=== PATIENT | male | born 1990 | race Caucasian/White ===

== ENCOUNTER 2019-10-14 14:21 | Emergency (ER) | payer BC, OTHER ==
--- NOTE | 2019-10-14 14:47 | ER Document Report ---
ED Medical Screen (RME) - General Chief Complaint: Palpitations Stated Complaint: PALPATIONS,LEFT ARM TINGLING Time Seen by Provider: 10/14/19 14:39 Mode of Arrival: Ambulatory Information source: Patient Notes: 29-year-old male presents to ED for complaint of chest pain to the middle and pressure to the left side off and on all week. He also has numbness and tingling to his arms and hands times a week. He states the numbness and tingling is worse on the left side. He is also been lightheaded and feeling like he is drunk. He states he did not come to the emergency room until his told him he had to. He states he thought it was his anxiety medicine so he stopped his anxiety medicine 4 days ago and has not helped either. They did get him a very high blood pressure earlier in the vital signs machine area but I just did a manual blood pressure and it was much lower 172/82. Patient is alert oriented respirations regular nonlabored speaking in full sentences. He states he does have a history of high blood pressure but they are taking off his blood pressure medicine chronic back pain anxiety depression and PTSD. He states he does not smoke he drinks on weekends does not use any illicit drugs. He is alert oriented respirations regular nonlabored speaking in full sentences. I have greeted and performed a rapid initial assessment of this patient. A comprehensive ED assessment and evaluation of the patient, analysis of test results and completion of medical decision making process will be conducted by an additional ED providers. TRAVEL OUTSIDE OF THE [place] IN LAST 30 DAYS: No - Related Data Allergies/Adverse Reactions: No Known Allergies Allergy (Unverified 10/14/19 14:38) Home Medications: duloxetine Past Medical History - Social History Chew tobacco use (# tins/day): No Frequency of alcohol use: Social Drug Abuse: None Physical Exam - Vital signs Vitals: Temp Pulse Resp BP Pulse Ox 98.6 F 62 20 211/130 H 100 10/14/19 14:36 10/14/19 14:36 10/14/19 14:36 10/14/19 14:36 10/14/19 14:36 Course - Vital Signs Vital signs: Temp Pulse Resp BP Pulse Ox 98.6 F 62 20 211/130 H 100 10/14/19 14:36 10/14/19 14:36 10/14/19 14:36 10/14/19 14:36 10/14/19 14:36
[2019-10-14 15:53] LABS: ABSOLUTE BASOPHILS # (AUTO) 0.1 10^3/uL (0.0-0.2); ABSOLUTE EOSINOPHILS # (AUTO) 0.1 10^3/uL (0.0-0.6); ABSOLUTE LYMPHOCYTES (AUTO) 2.3 10^3/uL (0.5-4.7); ABSOLUTE MONOCYTES (AUTO) 0.6 10^3/uL (0.1-1.4); ABSOLUTE NEUT (AUTO) 4.3 10^3/uL (1.7-8.2); BASOPHILS % (AUTO) 0.8 % (0-2); EOSINOPHILS % (AUTO) 1.8 % (0-6); HEMATOCRIT 45.4 % (37.9-51.0); HEMOGLOBIN 15.7 g/dL (13.5-17.0); LYMPHOCYTES % (AUTO) 30.5 % (13-45); MEAN CORPUSCULAR HGB CONC 34.6 g/dL (32.0-36.0); MEAN CORPUSCULAR VOLUME 92 fl (80-97); MONOCYTES % (AUTO) 8.5 % (3-13); PLATELET COUNT 235 10^3/uL (150-450); RED BLOOD COUNT 4.91 10^6/uL (4.35-5.55); RED CELL DISTRIBUTION WIDTH 13.4 % (11.5-14.0); SEGMENTED NEUTROPHILS % (AUTO) 58.4 % (42-78); TOTAL CELLS COUNTED % (AUTO) 100 %; WHITE BLOOD COUNT 7.4 10^3/uL (4.0-10.5)
[2019-10-14 16:07] LABS: ALBUMIN 4.7 g/dL (3.5-5.0); ALKALINE PHOSPHATASE 68 U/L (38-126); ANION GAP 6 (5-19); ASPARTATE AMINO TRANSFERASE 40 U/L (17-59); BILIRUBIN,DIRECT 0.2 mg/dL (0.0-0.4); BILIRUBIN,TOTAL 0.6 mg/dL (0.2-1.3); BLOOD UREA NITROGEN 19 mg/dL (7-20); CALCIUM 9.6 mg/dL (8.4-10.2); CARBON DIOXIDE 30 mmol/L (22-30); CHLORIDE 103 mmol/L (98-107); CREATINE KINASE 457 U/L (55-170); GLUCOSE 88 mg/dL (75-110); POTASSIUM 4.5 mmol/L (3.6-5.0); TOTAL PROTEIN 7.7 g/dL (6.3-8.2)
--- NOTE | 2019-10-14 16:13 | RADIOLOGY REPORT (SQ) ---
EXAM DESCRIPTION: CHEST 2 VIEWS IMAGES COMPLETED DATE/TIME: 10/14/2019 4:02 pm REASON FOR STUDY: chest pain COMPARISON: None. TECHNIQUE: Frontal and lateral radiographic views of the chest acquired. NUMBER OF VIEWS: Two view. LIMITATIONS: None. FINDINGS: LUNGS AND PLEURA: No opacities, masses or pneumothorax. No pleural effusion. MEDIASTINUM AND HILAR STRUCTURES: No masses or contour abnormalities. HEART AND VASCULAR STRUCTURES: Heart normal size. No evidence for failure. BONES: No acute findings. HARDWARE: None in the chest. OTHER: No other significant finding. IMPRESSION: NO SIGNIFICANT RADIOGRAPHIC FINDING IN THE CHEST. TECHNICAL DOCUMENTATION: JOB ID: [id number] 2010 [employer]- All Rights Reserved Reading location - IP/workstation name: [email or web address]
[2019-10-14] MEDS ORDERED: NORMAL SALINE 1000 ML 1,000 ML IV ONE (18:08)
--- NOTE | 2019-10-14 18:21 | ER Document Report ---
ED Cardiac - General Chief Complaint: Chest Pressure Stated Complaint: PALPATIONS,LEFT ARM TINGLING Time Seen by Provider: 10/14/19 14:39 Primary Care Provider: RENETTA GUZMAN MD [ACTIVE STAFF] - Follow up as needed Mode of Arrival: Ambulatory TRAVEL OUTSIDE OF THE [place] IN LAST 30 DAYS: No - HPI Notes: Patient is a 29-year-old male who presents with intermittent chest pain. He states it has been present for about 4 days. It feels like a pressure that lasts for several seconds and then resolves. He is unsure what makes it better or worse. He denies any shortness of breath with this. He denies any pleuritic pain. Patient states that he had tingling down both his arms earlier which has resolved. Went to urgent care who referred him to the ER. Currently, patient denies any chest pain. No tingling or numbness. Patient states he has felt hea ded off and on for a while. He had a diagnosis of hypertension but talked to his doctor about stopping his medicines and has been doing diet management. He states he started a new diet about 4 days ago and has been counting macros. He denies any fevers or cough. No abdominal pain. - Related Data Allergies/Adverse Reactions: No Known Allergies Allergy (Verified 10/14/19 15:36) Home Medications: duloxetine Past Medical History - General Information source: Patient - Social History Smoking Status: Never Smoker Chew tobacco use (# tins/day): No Frequency of alcohol use: Social Drug Abuse: None Family History: CAD Patient has homicidal ideation: No - Past Medical History Cardiac Medical History: Reports: Hx Hypertension Review of Systems - Review of Systems Constitutional: denies: Chills, Diaphoresis, Weakness EENT: denies: Nose congestion, Nose discharge Cardiovascular: Chest pain, Palpitations, Lightheaded. denies: Orthopnea, D yspnea, Edema Respiratory: denies: Cough, Hurts to breathe, Wheezing Gastrointestinal: denies: Abdomen distended, Abdominal pain, Diarrhea, Nausea, Vomiting Genitourinary: No symptoms reported Musculoskeletal: denies: Back pain, Muscle pain Skin: denies: Lesions, Rash Hematologic/Lymphatic: No symptoms reported. denies: Blood clots Neurological/Psychological: Depression Physical Exam - Vital signs Vitals: Temp Pulse Resp BP Pulse Ox 98.6 F 62 20 211/130 H 100 10/14/19 14:36 10/14/19 14:36 10/14/19 14:36 10/14/19 14:36 10/14/19 14:36 Notes: VITAL SIGNS: Within normal limits. GENERAL: No acute distress, non-toxic appearance. HEAD: Normal with no signs of head trauma. EYES: EOMI, conjunctiva normal, no discharge. EARS: Hearing grossly intact. NOSE: Normal. NECK: Normal range of motion, no tenderness, supple, no lymphadenopathy, No adenopathy, no JVD. CHEST: Clear breath sounds bilaterally. No wheezes, rales, or rhonchi. CARDIAC: Regular rate and rhythm. S1 and S2, without murmurs, gallops, or rubs. VASCULAR: No Edema. Peripheral pulses normal. ABDOMEN: Normal and soft with no tenderness, no masses or pulsatile masses. GENITOURINARY: Normal, No tenderness LYMPATHTIC: No lymphadenopathy noted. MUSCULOSKELETAL: Good range of motion of all major joints. Extremities without clubbing, cyanosis or edema. NEUROLOGICAL: Alert and oriented x 3. No focal sensory or strength deficits. Speech normal. Follows commands appropriately. PSYCHIATRIC: Normal Affect, judgement and mood. SKIN: Normal appearance with no rashes or lesions. - Notes Notes: VITAL SIGNS: Within normal limits. GENERAL: No acute distress, non-toxic appearance. HEAD: Normal with no signs of head trauma. EYES: EOMI, conjunctiva normal, no discharge. EARS: Hearing grossly intact. NOSE: Normal. NECK: Normal range of motion, no tenderness, supple, no JVD. CHEST: Clear breath sounds bilaterally. No wheezes, rales, or rhonchi. CARDIAC: Regular rate and rhythm. S1 and S2, without murmurs, gallops, or rubs. VASCULAR: No Edema. Peripheral pulses normal and equal. ABDOMEN: Normal and soft with no tenderness GENITOURINARY: Normal, No tenderness LYMPATHTIC: No lymphadenopathy noted. MUSCULOSKELETAL: Good range of motion of all major joints. Extremities without clubbing, cyanosis or edema. NEUROLOGICAL: Alert and oriented x 3. No focal sensory or strength deficits. Speech normal. Follows commands appropriately. PSYCHIATRIC: Normal Affect, judgement and mood. SKIN: Normal appearance with no rashes or lesions. Course - Re-evaluation Re-evalutation: 09/08/20 18:27 Patient appears comfortable on exam. He is denying any chest pain at this time. He states this has been intermittant for several days and only last several seconds. His blood pressure was initially high but has normalized to 121/76 on reassessment without any intervention. We will await a second troponin and reevaluate. His EKG here is normal. He is PERC negative. Patient was instr ucted to follow up with his family doctor. He needs to talk to his family doctor about restarting possible blood pressure medication, as well. Discussed that he needs to speak with his doctor who prescribes the duloxetine since he has weaned himself off of this. Patient is very agreeable to this. He was given strict return precautions. Heart score is 1. 10/14/19 18:31 10/14/19 20:14 10/14/19 20:15 10/16/19 00:26 - Vital Signs Vital signs: Temp Pulse Resp BP Pulse Ox 98.6 F 62 9 L 146/97 H 99 10/14/19 14:36 10/14/19 14:36 10/14/19 20:31 10/14/19 20:31 10/14/19 20:31 - Laboratory Result Diagrams: 10/14/19 15:27 10/14/19 15:27 Laboratory results interpreted by me: 10/14/19 15:27 Creatine Kinase 457 H - Diagnostic Test Radiology reviewed: Image reviewed, Reports reviewed - EKG Interpretation by [place] EKG shows normal: Sinus rhythm Rate: Bradycardia Rhythm: NSR When compared to previous EKG there are: Previous EKG unavailable Additional EKG results interpreted by me: 10/14/19 18:29 Sinus rhythm at a rate of 51. QTC 395. No acute ST changes. No previous EKG available for comparison. Discharge - Discharge Clinical Impression: Chest pain Qualifiers: Chest pain type: unspecified Qualified Code(s): R07.9 - Chest pain, unspecified Condition: Stable Disposition: HOME, SELF-CARE Instructions: Chest Pain of Unclear Cause ([facility]) Additional Instructions: Please follow up with your family doctor. I provided the number for cardiology as well. Please return for any worsening symptoms or return of pain. Referrals: RENETTA GUZMAN MD [ACTIVE STAFF] - Follow up as needed
[2019-10-14] MEDS ORDERED: ASPIRIN 325 MG TABLET PO ONE (20:08)
[2019-10-14 20:59] VITALS: BP 146/97
--- NOTE | 2019-10-15 09:37 | EKG REPORT ---
SEVERITY:- NORMAL ECG - SINUS BRADYCARDIA : Confirmed by: Christophe Anton MD 15-Oct-2019 09:36:22
== END 2019-10-14 21:00 | disposition home or self-care (01) ==
LOC: ER 14:21
DX: R07.89 Other chest pain (principal); R20.2 Paresthesia of skin; I10 Essential (primary) hypertension; R00.1 Bradycardia, unspecified; R00.2 Palpitations; R42 Dizziness and giddiness; F32.9 Major depressive disorder, single episode, unspecified; Z79.899 Other long term (current) drug therapy
CPT/HCPCS: 36415; 71046; 80053; 82550; 83735; 84484; 85025; 93005; 93010; 99285